=== PATIENT | male | born 1985 | race Caucasian/White ===

== ENCOUNTER 2025-07-30 18:00 | Emergency (ER) | payer BC, MEDICAID ==
[~2025-07-30] VITALS: Ht 182.9 cm; Wt 120.0 kg
--- NOTE | 2025-07-30 18:35 | ED.PDOC ---
HPI Comments 39-year-old male came to ER via EMS for dizziness. Patient denies any medical problems. About 30 minutes prior to arrival, patient was driving when he fell sudden-onset chest tightness. He pulled over and called paramedics. States chest pain is substernal, tight, radiating to the back of his neck, 7/10 intensity, associated with shortness a breath, diaphoresis, nausea, vomiting once, and dizziness. Patient was given IV fluids, aspirin and nitroglycerin while EN route to the ER Chief Complaint: Dizziness Time Seen by MD: 18:34 Reviewed Notes: Bell Spinner Notes Allergies: Coded Allergies: NO KNOWN ALLERGIES (Unverified , 07/30/25) Information Source: Patient, Emergency Med Personnel Mode of Arrival: EMS Severity: Moderate Timing: Minutes Duration: Since onset Prehospital treatment: 12 Lead EKG, Accucheck, ASA, IVF, NTG, Oxygen Location: Substernal Radiation: Neck Quality: Tightness Associated Signs and Symptoms: SOB, Diaphoresis, N/V Past Medical History PAST MEDICAL HISTORY: Denies Surgical History: Appendectomy Family History Family History: Reviewed,noncontributory to illness Social History Smoker: Non-Smoker Alcohol: Denies ETOH Use Drugs: Marijuana Lives In: Home Was a procedure done? Was a procedure done?: No CP Differential Dx Differential Diagnosis: Angina, Anxiety / Panic Attack Differential Diagnosis: Angina, Chest Wall Pain, Costochondritis, Esophageal reflux/spasm, Gastritis, Myocardial Infarction, Pneumonia, Other (Differential diagnoses considered include acute ischemic coronary syndrome, aortic dissection , cardiac tamponade, mediastinitis, pulmonary embolus, pneumothorax, tension pneumothorax, esophageal rupture, coronary artery vasospasm, myocarditis, pericarditis, pneumonia, pulmonary edema, esophageal tear, pancreatitis, aortic stenosis, dilated cardiomyopathy, hypertrophic cardiomyopathy, mitral valve prolapse, malignancy, pleuritis, pneumomediastinum, primary pulmonary hyperte nsion, cholecystitis, esophageal spasm, esophagus, gastritis, GERD, peptic ulcer disease, costochondritis, fibromyalgia, rib fracture, herpes zoster, radicular syndromes, thoracic outlet syndrome, somatization.) X-Ray, Labs, Meds, VS Vital Signs Date Time Temp Pulse Resp B/P (MAP) Pulse Ox O2 Delivery O2 Flow Rate FiO2 07/30/25 22:00 46 20 109/65 (80) 96 07/30/25 20:00 51 07/30/25 19:30 Room Air* 0 21 07/30/25 19:30 97.1 66 13 123/68 (86) 99 97.1 07/30/25 18:40 51 10 99 Room Air* 0 21 07/30/25 18:32 97.7 51 10 110/72 (85) 99 97.7 07/30/25 18:09 97.6 70 20 113/64 100 97.6 07/30/25 18:06 49 Lab Test 07/30/25 21:48 07/30/25 21:38 07/30/25 19:55 07/30/25 18:48 Range/Units Influenza Type A Antigen Negative Negative Influenza Type B Antigen Negative Negative SARS-CoV-2 Antigen (Rapid) Negative NEGATIVE Troponin I High Sensitivity < 3 L < 3 L < 3 L </=54 ng/L C-Reactive Protein High Sensitivity 0.17 <1.0 mg/dL White Blood Count 15.4 H 4.4-10.8 10^3/uL Red Blood Count 5.82 4.5-5.90 10^6/uL Hemoglobin 15.8 13.5-17.5 g/dL Hematocrit 45.9 41.0-53.0 % Mean Corpuscular Volume 78.9 L 80.0-100.0 fL Mean Corpuscular Hemoglobin 27.2 L 28.0-32.0 pg Mean Corpuscular Hemoglobin Concent 34.4 32.0-36.0 g/dL Red Cell Distribution Width 13.9 11.8-14.3 % Platelet Count 265 140-450 10^3/uL Mean Platelet Volume 8.0 6.9-10.8 fL Neutrophils (%) (Auto) 73.9 37.0-80.0 % Lymphocytes (%) (Auto) 19.7 10.0-50.0 % Monocytes (%) (Auto) 4.0 0.0-12.0 % Eosinophils (%) (Auto) 1.7 0.0-7.0 % Basophils (%) (Auto) 0.7 0.0-2.0 % Neutrophils # (Auto) 11.4 H 1.6-8.6 10 ^3/uL Lymphocytes # (Auto) 3.0 0.4-5.4 10 ^3/uL Monocytes # (Auto) 0.6 0-1.3 10 ^3/uL Eosinophils # (Auto) 0.3 0-0.8 10 ^3/uL Basophils # (Auto) 0.1 0-0.2 10 ^3/uL Nucleated Red Blood Cells 0.0 % Sodium Level 143 136-145 mmol/L Potassium Level 3.5 3.5-5.1 mmol/L Chloride Level 108 H 98-107 mmol/L Carbon Dioxide Level 23 20-31 mmol/L Anion Gap 12 5-15 Blood Urea Nitrogen 14 9-23 mg/dL Creatinine 0.85 0.700-1.30 mg/dL Glomerular Filtration Rate Calc 115 >90 mL/min BUN/Creatinine Ratio 16.5 10.0-20.0 Serum Glucose 130 H 74-106 mg/dL Calcium Level 8.9 8.7-10.4 mg/dL B-Type Natriuretic Peptide 7.52 0-100 pg/mL Current Medications Medications (Trade) Dose Ordered Sig/Ginger Route Start Time Stop Time Status Last Admin Sodium Chloride 1,000 ml @ 1,000 mls/hr Q1H ONCE IV 07/30/25 18:45 07/30/25 19:44 DC 07/30/25 18:41 Ketorolac Tromethamine (Toradol Injection) 15 mg ONCE ONCE IV 07/30/25 20:00 07/30/25 20:14 DC 07/30/25 20:20 CHEST RADIOGRAPH Indication: cp Technique: Single frontal view of the chest was obtained Comparison: None FINDINGS: Lines and Tubes: None Lungs: No focal consolidation. Pleura: No effusion. No pneumothorax. Cardiomediastinal contours: Unremarkable Bones: No acute osseous abnormality. IMPRESSION: 1. No acute cardiopulmonary disease. Time of 1ST Reevaluation: 18:32 Reevaluation 1ST: Unchanged Patient Education/Counseling: Need For Follow Up Family Education/Counseling: No Family Present SEPSIS Sepsis Screen Date sepsis recognized/suspect: Jul 30, 2025 Time Sepsis recognized/suspect: 1800 Recent Procedure: No On Antibiotic Therapy: No Respiratory Rate >20: No Heart Rate >90: No Temp<36 C (96.8 F) or >38.3 C: No SBP <90 or MAP <65 mmHG: No New Acute Mental Status Change: No Is the patient on CPAP, BIPAP,: No Physician Orders Saline Lock (07/30/25 18:36) Multimedia Manager (07/30/25 ) Chest Xray 1 View (07/30/25 18:36) Vital Signs Q1HR (07/30/25 18:36) Vital Signs Date Time Temp Pulse Resp B/P (MAP) Pulse Ox O2 Delivery O2 Flow Rate FiO2 07/30/25 22:00 46 20 109/65 (80) 96 07/30/25 20:00 51 07/30/25 19:30 Room Air* 0 21 07/30/25 19:30 97.1 66 13 123/68 (86) 99 97.1 07/30/25 18:40 51 10 99 Room Air* 0 21 07/30/25 18:32 97.7 51 10 110/72 (85) 99 97.7 07/30/25 18:09 97.6 70 20 113/64 100 97.6 07/30/25 18:06 49 Laboratory Tests Test 07/30/25 18:48 White Blood Count 15.4 10^3/uL (4.4-10.8) H Medications Medications Dose Ordered Sig/Ginger Route Start Time Stop Time Status Last Admin Dose Admin Ketorolac Tromethamine 15 mg ONCE ONCE IV 07/30/25 20:00 07/30/25 20:14 DC 07/30/25 20:20 Sodium Chloride 1,000 ml @ 1,000 mls/hr Q1H ONCE IV 07/30/25 18:45 07/30/25 19:44 DC 07/30/25 18:41 Departure 1 Departure Time of Disposition: 22:46 Impression: Primary Impression: Chest pain Additional Impression: Leukocytosis Disposition: 01 HOME / SELF CARE / HOMELESS Condition: Stable Additional Instructions: ED DISCHARGE INSTRUCTIONS Instructions: Please read all instructions provided in this packet carefully. Although you have been discharged from the Emergency Department, this does not mean that you have a "clean bill of health". No definitive diagnosis for your symptoms has been made today. It is possible that you are in the process of developing a serious illness. This is why you must return to the ED without fail if any new or worsening symptoms (especially if your symptoms include chest pain, trouble breathing, abdominal pain, fever, headache, confusion, trouble seeing, or trouble walking) It is also very important that you see a primary care provider (PCP) within the next 3-5 days to follow up. If you are unable to get an appointment, return to the ED for re-evaluation. CHEST PAIN EDUCATION There are many things that can cause chest pain. Some are not serious and will get better on their own in a few days. But some kinds of chest pain need more testing and treatment. Your doctor may have recommended a follow-up visit in the next few days. If you are not getting better, you may need more tests or treatment. Even though your doctor has released you, you still need to watch for any problems. The doctor carefully checked you, but sometimes problems can develop later. If you have new symptoms or if your symptoms do not get better, get medical care right away. If you have worse or different chest pain or pressure that lasts more than 5 minutes or you passed out (lost consciousness), call 911 or seek other emergency help right away. A medical visit is only one step in your treatment. Even if you feel better, you still need to do what your doctor recommends, such as going to all suggested follow-up appointments and taking medicines exactly as directed. This will help you recover and help prevent future problems. How can you care for yourself at home? Rest until you feel better. Take your medicine exactly as prescribed. Call your doctor if you think you are having a problem with your medicine. Do not drive after taking a prescription pain medicine. When should you call for help? Call 911 if: You passed out (lost consciousness). You have severe difficulty breathing. You have symptoms of a heart attack. These may include: Chest pain or pressure, or a strange feeling in your chest. Sweating. Shortness of breath. Nausea or vomiting. Pain, pressure, or a strange feeling in your back, neck, jaw, or upper belly or in one or both shoulders or arms. Lightheadedness or sudden weakness. A fast or irregular heartbeat. After you call 911, the percolator operator may tell you to chew 1 adult-strength or 2 to 4 low-dose aspirin. Wait for an ambulance. Do not try to drive yourself. Call your doctor now or seek immediate medical care if: You have any trouble breathing. You have new or different chest pain. You are dizzy or lightheaded, or you feel like you may faint. Watch closely for changes in your health, and be sure to contact your doctor if you do not get better as expected. Current as of: June 11, 2024 Author: [employer] Staff? Learning About High White Blood Cell Counts What are white blood cells? White blood cells (leukocytes) help protect your body from infection. Normally, when germs get inside your body, your body makes more white blood cells that search for and destroy the germs. Less often, there are medical problems where the body may make a lot more white blood cells than it needs. What happens when you have a high white blood cell count? Your white blood cell count may be high because your body is fighting an infection. But other things can cause it, such as some medicines, bailon, an illness, or other health problems. When your doctor sees that your white blood cell count is high, he or she will try to find out why, and then treat the cause. What are the symptoms? A high white blood cell count alone doesn't cause any symptoms. The symptoms you feel may come from the medical problem that your white blood cells are fighting. For example, if you have pneumonia, you may have a fever and trouble breathing. These are symptoms of pneumonia, not of a high white blood cell count. How is it treated? Your doctor may do more tests to find the problem that's making your white blood cell count high. Once your doctor finds the problem, he or she may be able to treat it. Part of your treatment may be telling your doctor if you feel worse. Watch your temperature, and call your doctor if your fever goes up and stays up. Follow-up care is a hahn part of your treatment and safety. Be sure to make and go to all appointments, and call your doctor if you are having problems. It's also a good idea to know your test results and keep a list of the medicines you take. Credits for Learning About High White Blood Cell Counts Current as of: October 24, 2023 Comments 39-year-old male with chest pain. Serial EKG negative for signs of ischemia. Serial High sensitivity troponin negative. CXR shows no acute process. Presentation not suggestive of acute coronary syndrome, pulmonary embolism or aortic dissection. Patient improved at time of discharge. Patient has not been hypoxic, in respiratory distress or dyspneic during the ED observation. Patient able to ambulate without difficulty. Patient felt stable for discharge to follow up with PCP promptly. Patient advised to return to the ED with any new, worsening or concerning symptoms or inability to follow up with PCP. Extensive evaluation was performed in attempt to identify or rule out: (See differential diagnosis section) The following tests were ordered, and results were reviewed by me and discussed with patient: (See diagnostic results section) The following test were independently interpreted by me: EKG I reviewed and agreed with the following test results read by other providers: Chest x-ray I reviewed the following notes from the pt's past medical encounters: N/A Additional information was gathered from interviewing the following independent historians: EMS personnel Discussion of management or test interpretation with external physician/other qualified health career technical education instructor: N/A Decision regarding hospitalization or escalation of hospital level of care: Risks and benefits of admission for further treatment of patient's condition was considered however due to patient's stable condition patient will be discharged to follow up closely or return to care for worsening of condition or inability to follow up. Critical Care Note Critical Care Time?: No Stability Stability form required: No Heart Score Heart Score: Heart Score Response (Comments) Value History Slightly Suspicious 0 EKG Normal 0 Age <45 0 Risk Factors No known risk factors 0 Troponin Normal limit 0 Total 0 I personally scribed for PATRICIA KRAUSE MD ([employer]) on 07/30/25 at 18:35. Electronically submitted by Gautam Aguila ([email or web address]). I personally scribed for PATRICIA KRAUSE MD ([email or web address]) on 07/30/25 at 19:58. Electronically submitted by Gautam Aguila ([email or web address]). PATRICIA KRAUSE MD Jul 30, 2025 18:35
[2025-07-30 18:40] VITALS: PULSE 51; RESP 10; O2SAT 99
[2025-07-30] MEDS: SODIUM CHLORIDE 0.9% 1,000 ML IV ONE (18:41)
--- NOTE | 2025-07-30 18:46 | ECG ---
[facility] Test Date: 2025-07-30 Test Time: 18:06:22 Pat Name: ABBEY OTERO Department: Room: Gender: Film Developer: : [id number] Requested By: PATRICIA KRAUSE Order Number: [id number] Reading MD: Andre Mayorga Measurements Intervals [place] Rate: 49 P: 45 MS: 203 QRS: 46 QRSD: 106 T: 67 QT: 473 QTc: 428 Interpretive Statements Sinus bradycardia Electronically Signed On 08-03-2025 18:38:48 PDT by Andre Mayorga Please click the below link to view image of tracing.
[2025-07-30 19:02] LABS: Hematocrit 45.9 % (41.0-53.0); Hemoglobin 15.8 g/dL (13.5-17.5); Mean Corpuscular Hemoglobin 27.2 pg (28.0-32.0); Mean Corpuscular Volume 78.9 fL (80.0-100.0); Nucleated Red Blood Cells % 0.0 %
--- NOTE | 2025-07-30 19:04 | DVH ---
CHEST RADIOGRAPH Indication: cp Technique: Single frontal view of the chest was obtained Comparison: None FINDINGS: Lines and Tubes: None Lungs: No focal consolidation. Pleura: No effusion. No pneumothorax. Cardiomediastinal contours: Unremarkable Bones: No acute osseous abnormality. IMPRESSION: 1. No acute cardiopulmonary disease.
[2025-07-30 19:11] LABS: Sodium 143 mmol/L (136-145)
[2025-07-30 19:12] LABS: Anion Gap 12 (5-15); Calcium 8.9 mg/dL (8.7-10.4); Carbon Dioxide 23 mmol/L (20-31)
[2025-07-30 19:17] LABS: BUN/Creatinine Ratio 16.5 (10.0-20.0); Blood Urea Nitrogen 14 mg/dL (9-23); Chloride 108 mmol/L (98-107); Glucose 130 mg/dL (74-106); Potassium 3.5 mmol/L (3.5-5.1)
[2025-07-30 19:30] VITALS: TEMP 97.1
[2025-07-30] MEDS: KETOROLAC TROMETH 30 MG/ML 1ML VIAL IV ONE (20:20)
[2025-07-30] MEDS: ACETAMINOPHEN 500 MG TAB or CAP PO ONE (20:22)
[2025-07-30 22:00] VITALS: BP 109/65; PULSE 46; RESP 20; O2SAT 96
[2025-07-30 22:33] LABS: COVID19 ANTIGEN SOFIA FIA NEGATIVE (NEGATIVE)
== END 2025-07-30 23:01 | disposition home or self-care (01) ==
LOC: ER 18:00 → EDBD 18:00 → ER 23:01
DX: R07.2 Precordial pain (principal); D72.829 Elevated white blood cell count, unspecified; F12.90 Cannabis use, unspecified, uncomplicated; Z88.6 Allergy status to analgesic agent; Z90.49 Acquired absence of other specified parts of digestive tract; Z20.822 Contact with and (suspected) exposure to COVID-19
CPT/HCPCS: 36415; 71045; 80048; 83880; 84484; 85025; 86141; 87426; 87804; 93005; 96361; 96374; 99285; J1885; J7030